=== PATIENT | male | born 1960 | race Caucasian/White ===

== ENCOUNTER → 2018-06-04 11:50 | Outpatient (CLI) | payer OTHER, SELFPAY ==
[2018-06-04 14:09] LABS: Cholesterol 145 mg/dL (200); High Density Lipoprotein 37 mg/dL; Triglycerides 165 mg/dL; Very Low Density Lipoprotein 33 mg/dL (5-40)
== END ==
PROVIDERS: Family Provider Family Medicine; PCP Family Medicine; Visit Provider Family Medicine
DX: E11.9 Type 2 diabetes mellitus without complications (principal); E78.00 Pure hypercholesterolemia, unspecified
CPT/HCPCS: 36415; 80061; 83036

== ENCOUNTER → 2019-07-17 10:48 | Outpatient (CLI) | payer OTHER, SELFPAY ==
[2019-07-17 10:06] VITALS: BMI 29.1
[2019-07-17 13:02] LABS: ALB/GLOB Ratio 1.1 RATIO (0.9-2.4); AST(SGOT) 30 U/L (15-37); Alanine Aminotransfer ALT/SGPT 46 U/L (16-61); Alkaline Phosphatase 56 U/L (45-117); Anion Gap 7 (5-15); BUN 18 mg/dL (7-18); BUN/Creat Ratio 14.4 RATIO (10-20); Calcium,Total 9.3 mg/dL (8.5-10.1); Chloride 104 mmol/L (98-107); Cholesterol 151 mg/dL (200); Creatinine, Serum 1.25 mg/dL (0.70-1.30); EST Glomerular Filtration Rate 63 mL/min (>60); Est Glom Filt Rate - Afr Amer 76 mL/min (>60); Globulin 3.7 g/dL (2.2-4.2); Glucose 156 mg/dL (74-106); High Density Lipoprotein 33 mg/dL; Potassium 4.6 mmol/L (3.5-5.1); Protein, Total 7.7 g/dL (6.4-8.2); Sodium Level 138 mmol/L (136-145); Triglycerides 154 mg/dL; Very Low Density Lipoprotein 31 mg/dL (5-40)
[2019-07-17 13:16] LABS: Microalbumin,Random Urine 39.9 mg/L (NO RANGE EST.); Microalbumin:Creatinine Ratio 32.4 mg/g CRE (<30 mg/g CRE)
== END ==
PROVIDERS: Family Provider Family Medicine; PCP Family Medicine; Visit Provider Family Medicine
DX: E11.9 Type 2 diabetes mellitus without complications (principal); E78.00 Pure hypercholesterolemia, unspecified
CPT/HCPCS: 36415; 80053; 80061; 82043; 82570

== ENCOUNTER → 2020-09-02 16:18 | Outpatient (CLI) | payer OTHER, SELFPAY ==
[2020-09-02 15:42] VITALS: BMI 29.2
[2020-09-02 17:37] LABS: ALB/GLOB Ratio 1.1 RATIO (0.9-2.4); AST(SGOT) 21 U/L (15-37); Alanine Aminotransfer ALT/SGPT 53 U/L (16-61); Alkaline Phosphatase 52 U/L (45-117); Anion Gap 11 (5-15); BUN 28 mg/dL (7-18); BUN/Creat Ratio 20.9 RATIO (10-20); Calcium,Total 9.7 mg/dL (8.5-10.1); Chloride 105 mmol/L (98-107); Cholesterol 146 mg/dL (200); Creatinine, Serum 1.34 mg/dL (0.70-1.30); EST Glomerular Filtration Rate 58 mL/min (>60); Est Glom Filt Rate - Afr Amer 70 mL/min (>60); Globulin 3.7 g/dL (2.2-4.2); Glucose 130 mg/dL (74-106); High Density Lipoprotein 39 mg/dL; Potassium 3.8 mmol/L (3.5-5.1); Protein, Total 7.7 g/dL (6.4-8.2); Sodium Level 138 mmol/L (136-145); Triglycerides 340 mg/dL; Very Low Density Lipoprotein 68 mg/dL (5-40)
[2020-09-02 18:09] LABS: Microalbumin,Random Urine 40.5 mg/L (NO RANGE EST.); Microalbumin:Creatinine Ratio 35.5 mg/g CRE (<30 mg/g CRE)
== END ==
PROVIDERS: PCP Family Medicine; Referring Provider Family Medicine; Visit Provider Family Medicine
DX: E11.9 Type 2 diabetes mellitus without complications (principal)
CPT/HCPCS: 36415; 80053; 80061; 82043; 82570

== ENCOUNTER 2021-08-19 08:01 | Emergency (ER) | payer OTHER, SELFPAY ==
[2021-08-19] VITALS (7 sets, daily range): BP systolic 114–158; BP diastolic 73–98; PULSE 61–141; RESP 12–65; TEMP 36.1; O2SAT 14–100; BMI 29.2
--- NOTE | 2021-08-19 08:11 | EDS_ITS ---
HPI History of Present Illness Chief Complaint: Upper Extremity Injury Informant: patient Occured/Mechanism Mechanism/Context: Yes injury, Yes blunt trauma and Yes same level fall Onset/Context/Timing Onset: Hours Context: Sudden Onset Timing: Continuous Quality of Pain: Aching Location: Right shoulder Current Severity: Mild Maximum Severity: Severe Worsened by: Any type of movement Relieved by: Nothing Associated Symptoms Associated Symptoms: Positive for Loss of Funtion; Negative for Parasthesia and Weakness Narrative Narrative: Patient is a 61-year-old [id number]-hlrawfct male who was hunting. Phillip franks tripped on a fence in the middle of the field. He states he landed on his right shoulder. He has fractured his right clavicle in the past. He denies head trauma. He is not on an anticoagulant. He denies neck pain. He denies paresthesia, anesthesia or motor weakness. He states he has significant pain with any type of movement of the right upper extremity. He states he heard 3 clicks and feels the muscle is spasming. He denies chest pain. No shortness of breath. Tetanus Immunization: 5-10 years Prior similar symptoms: No Recent Illness/Hospitalization: No [facility] Medical History (Updated 08/19/21 @ 14:[address] Kwadwo Barcenas MD) Diabetes High cholesterol Home Medications blood sugar diagnostic #50 ea 12/02/20 [Rx Last Taken Unknown] canagliflozin 300 mg tablet See Rx Instructions .ROUTE .COMPLEX #90 tablet 12/02/20 [Rx Last Taken Unknown] lisinopril 10 mg tablet 10 mg PO QDAY #90 tab 12/02/20 [Rx Last Taken Unknown] metformin 1,000 mg tablet See Rx Instructions .ROUTE .COMPLEX #180 tablet 12/02/20 [Rx Last Taken Unknown] rosuvastatin 5 mg tablet 5 mg PO QDAY #90 tab 12/02/20 [Rx Last Taken Unknown] albuterol sulfate 90 mcg/actuation aerosol inhaler 2 puff INHALATION Q6H PRN #18 g 03/30/21 [Rx Last Taken Unknown] citalopram 20 mg tablet 20 mg PO DAILY #90 tab 03/30/21 [Rx Last Taken Unknown] Allergy/AdvReac Type Severity Reaction Status Date / Time red dye Allergy Intermediate Headache Verified 08/19/21 08:04 Family History Mother Diverticulitis High blood cholesterol Skin cancer Thyroid disorder Diabetes Father Myocardial infarction Brother High blood cholesterol Diabetes Skin cancer Psychiatric care Surgical History History of orthopedic surgery History of vasectomy Social History (Updated 08/19/21 @ 08:[address] Kwadwo Barcenas MD) household members: none Smoking Status: Never smoker alcohol intake: never substance use type: does not use what type of physical activity do you participate in: none ROS ROS ED Constitutional Constitutional ED: Denies chills, fever(s) or subjective Eyes Eyes: Denies blurry vision or change in vision ENT ENT ED: Denies ear pain or sore throat Cardiovascular Cardiovascular: Denies chest pain or palpitations Respiratory/Chest Respiratory/Chest: Denies dyspnea or dyspnea on exertion Gastrointestinal Gastrointestinal: Denies abdominal pain, nausea or vomiting Musculoskeletal Musculoskeletal: Denies back pain, myalgias or neck pain Integumentary Denies Abrasions or rash Neurologic Neurologic: Denies paresthesias or weakness Hematologic/Lymphatic Hematologic/Lymphatic: Denies easy bleeding or easy bruising EXAM Physical Exam Const Vital Signs: 08/19/21 08:02 Temperature 97.0 F L Temperature Source Temporal Pulse Rate 62 Respiratory Rate 16 Blood Pressure 141/86 H Blood Pressure Mean 104 Pulse Ox 100 Oxygen Delivery Method Room Air Positive well nourished and well developed General Appearance ED: well developed; Negative for cyanotic, diaphoretic or NAD HEENT HEENT Narrative: Ears normal. Nares patent. No dental trauma. No clinical findings of basilar skull fracture. normocephalic and atraumatic Eyes PERRL and EOMs intact bilaterally Eyes Narrative: There is no subconjunctival hemorrhage. Neck No full ROM and No supple Resp No normal respiratory effort and No clear to auscultation bilaterally Cardio regular rate, regular rhythm, S1 normal heart sound, S2 normal heart sound and no murmurs GI non-tender and non-distended Auscultation: normoactive bowel sounds Palpation: soft Back/Spine no CVA tenderness Extremity Extremity Narrative: Of the clavicle or AC joint. There is no pain the patient with lateral medial epicondyle, olecranon process or radial head. There is no pain the patient with distal radius or ulna. Is no pain the patient with carpal bones, metacarpal bones or phalanges. Axillary, median, radial and ulnar fu nction intact. Radial pulses palpable.Patient has pain ovation of the proximal humerus. Right Upper Extremity: shoulder joint; Negative for clavicle, bony scapula, elbow joint, lower arm, wrist or hand and digits Neuro oriented x3, CN's II-XII intact bilaterally, no focal motor deficits and no sensory deficits noted Sensorium / Orientation: alert Psych mental status grossly normal Skin Lesions: no lesions Rashes: no rashes MDM MDM MDM Narrative Medical decision making narrative: Suspect patient has a proximal humeral fracture. X-ray was obtained to evaluate for fracture versus dislocation versus contusion. He was medicated with [place]. Patient's case was discussed with Dr. Bobby Martinez. He recommended not going to range of motion and specifically internal rotation. He recommended a sling with pillow so that patient's arm would be externally rotated and AB ducted. This was obtained. Patient required sedation again. Onset time 1345. End time 1349. There was an obvious clunk indicating that the dislocation was reduced. He was placed in the sling with his arm externally rotated to 90 degrees and AB ducted. Post reduction film was ordered. Post reduction film is successful. Will discharge to home to follow-up with Dr. Bobby Martinez. Radiography Diagnostic Testin views of the right shoulder were obtained and findings are consistent with a posterior dislocation of the right humerus. Will consent patient for sedation and reduction. Post reduction films revealed that he still has a posterior dislocation. Dr. Bobby Martinez is on-call for orthopedics was paged to discuss case and recommendations. Procedures Other Procedures Procedure(s): 1. Deep sedation 2. Reduction posterior right shoulder dislocation Patient was informed of his x-ray findings and need for sedation and reduction. He had no prior complication with anesthesia. He denies allergy to soy products or egg products. He has not eaten since last night. He was given opportunity ask questions. None were asked. Discharge Plan Triage Chief Complaint: Upper Extremity Injury Other Complaint: Fall ED Provider: Kwadwo Barcenas Dx/Rx/DC Orders Clinical Impression: Closed posterior dislocation of right shoulder Instructions: ED Dislocation: Shoulder (Reduced) Prescriptions: No Action lisinopril 10 mg tablet 10 mg PO QDAY Qty: 90 RF: 3 metformin 1,000 mg tablet See Rx Instructions .ROUTE .COMPLEX Qty: 180 RF: 1 rosuvastatin [Crestor] 5 mg tablet 5 mg PO QDAY Qty: 90 RF: 2 Invokana 300 mg tablet See Rx Instructions .ROUTE .COMPLEX Qty: 90 RF: 1 (DME) OneTouch Ultra Blue Test Strip Strip See Rx Instructions .ROUTE .MEDSUPPLY Qty: 50 RF: 3 albuterol sulfate [Ventolin HFA] 90 mcg/actuation HFA aerosol inhaler 2 puff INHALATION Q6H PRN (Reason: shortness of breath or wheezing) Qty: 18 RF: 1 citalopram [Celexa] 20 mg tablet 20 mg PO DAILY Qty: 90 RF: 3 Primary Care Provider: Cesar Miranda Referrals: Cesar Miranda, [Primary Care Provider] - Bobby Martinez MD [STAFF PHYSICIAN] - 5-7 Days Activity Restrictions/Additional Instructions: Keep arm in sling. When you change her close keep your arm rotated outward. If you rotate inward you may redislocate your shoulder Disposition Disposition: Home, Self Care
[2021-08-19] MEDS: HYDROcodone Bitartrate/Apap 5/325 Tablet PO ×2 (08:17→12:30)
--- NOTE | 2021-08-19 08:34 | RAD_ITS ---
STUDY: X-RAY - RIGHT SHOULDER REASON FOR EXAM: Right shoulder pain, right shoulder injury today. TECHNIQUE: 2 view(s) of the shoulder. COMPARISON: None. FINDINGS: There is posterior dislocation of the glenohumeral articulation. There is acromioclavicular arthrosis. Normal acromion. Normal humeral head and visualized proximal humerus. The soft tissue structures are unremarkable. Normal visualized pulmonary apex. RAD/Shoulder min 2 Views IMPRESSION: Posterior shoulder dislocation. Electronically Signed: Josef Degroot MD at 9:06 EDT Tel , Service support ,
--- NOTE | 2021-08-19 10:25 | RAD_ITS ---
STUDY: X-RAY - RIGHT SHOULDER REASON FOR EXAM: Post reduction of right shoulder dislocation. TECHNIQUE: 2 view(s) of the shoulder. COMPARISON: Radiographs obtained earlier today. FINDINGS: There is persistent posterior dislocation of the glenohumeral articulation. There is acromioclavicular arthrosis. Normal acromion. Normal humeral head and visualized proximal humerus. The soft tissue structures are unremarkable. Normal visualized pulmonary apex. RAD/Shoulder min 2 Views IMPRESSION: Persistent posterior dislocation of the glenohumeral articulation. Electronically Signed: Josef Degroot MD at 11:09 EDT Tel , Service support ,
[2021-08-19] MEDS: Propofol 200 MG/20 ML Vial IV BOLUS (10:34)
--- NOTE | 2021-08-19 14:19 | RAD_ITS ---
STUDY: X-RAY - RIGHT SHOULDER REASON FOR EXAM: Post reduction right shoulder dislocation. TECHNIQUE: 2 view(s) of the shoulder. COMPARISON: Earlier radiographs today. FINDINGS: There is reduction of the posterior shoulder dislocation. There is acromioclavicular arthrosis. Normal acromion. There is no demonstrated humeral head fracture on the views submitted. The soft tissue structures are unremarkable. Normal visualized pulmonary apex. RAD/Shoulder min 2 Views IMPRESSION: Reduction of right shoulder dislocation. Electronically Signed: Josef Degroot MD at 14:51 EDT Tel , Service support ,
== END 2021-08-19 14:52 | disposition home or self-care (01) ==
PROVIDERS: Emergency Provider Emergency Medicine; PCP Family Medicine
DX: S43.024A Posterior dislocation of right humerus, initial encounter (principal); W01.10XA Fall on same level from slipping, tripping and stumbling with subsequent striking against unspecified object, initial encounter; Y93.89 Activity, other specified; Y92.9 Unspecified place or not applicable; Y99.9 Unspecified external cause status; E11.9 Type 2 diabetes mellitus without complications; E78.00 Pure hypercholesterolemia, unspecified; Z79.84 Long term (current) use of oral hypoglycemic drugs; Z79.899 Other long term (current) drug therapy
CPT/HCPCS: 23650; 73030; 99152; 99153; 99285; J7030; A4216

== ENCOUNTER → 2021-10-27 15:33 | Outpatient (CLI) | payer OTHER, SELFPAY ==
[2021-10-27 17:55] LABS: Absolute Lymphocyte Count 2.62 X10^3/uL (0.83-4.51); Absolute Neutrophil Count 5.4 X10^3/uL (2.0-7.7); Basophil# 0.04 X10^3/uL; Basophil% 0.4 % (0-1); Eosinophil# 0.15 X10^3/uL; Eosinophils% 1.7 % (0-5); Hemoglobin 16.6 g/dL (13.0-16.5); Lymphocyte # 2.62 X10^3/ul (0.83-4.51); Lymphocyte % 29.3 % (19-41); Mean Corp Hgb Conc 33.9 g/dL (32-36); Mean Corpuscular Hgb 32.3 pg (27.0-32.0); Mean Corpuscular Volume 95.3 fL (80-94); Monocyte# 0.65 X10^3/uL; Monocyte% 7.3 % (0-10); NRBC Flagged by Analyzer 0 % (0-5); Neutrophil # 5.42 X10^3/uL (2.7-7.7); Neutrophil % 60.5 % (47-70); Platelet Count 166 K/mm3 (150-450); RBC Distribution Width CV 12.8 % (11.6-14.6); RBC Distribution Width SD 44.8 fl (35.1-43.9); Red Blood Count 5.14 M/mm3 (4.6-6.2)
[2021-10-27 18:12] LABS: Anion Gap 7 (5-15); BUN 38 mg/dL (7-18); BUN/Creat Ratio 30.6 RATIO (10-20); Calcium,Total 9.7 mg/dL (8.5-10.1); Chloride 107 mmol/L (98-107); Creatinine, Serum 1.24 mg/dL (0.70-1.30); EST Glomerular Filtration Rate 63 mL/min (>60); Est Glom Filt Rate - Afr Amer 76 mL/min (>60); Glucose 185 mg/dL (74-106); Potassium 4.4 mmol/L (3.5-5.1); Sodium Level 136 mmol/L (136-145)
[2021-10-27 18:23] LABS: Hemoglobin A1c 10.3 % (3.8-5.6)
== END ==
PROVIDERS: PCP Family Medicine; Visit Provider Family Medicine
DX: M67.919 Unspecified disorder of synovium and tendon, unspecified shoulder (principal); E11.9 Type 2 diabetes mellitus without complications
CPT/HCPCS: 36415; 80048; 83036; 85025

== ENCOUNTER → 2021-10-28 09:09 | Outpatient (CLI) | payer OTHER, SELFPAY ==
--- NOTE | 2021-10-28 09:11 | EKG12_ITS ---
Test Reason : PRE OP Blood Pressure : / mmHG Vent. Rate : 072 BPM Atrial Rate : 072 BPM P-R Int : 186 ms QRS Dur : 096 ms QT Int : 370 ms P-R-T Axes : 070 050 055 degrees QTc Int : 405 ms Normal sinus rhythm Normal ECG Confirmed by MARCIN GARCIA, SHIN ([id number]), marketing editor CASS WRIGHT ([id number]) on 10/29/2021 12:43:51 PM Referred By: Cesar Miranda Confirmed By:TAMIKA BURCH MD
== END ==
PROVIDERS: PCP Family Medicine; Referring Provider Family Medicine; Visit Provider Family Medicine
DX: Z01.818 Encounter for other preprocedural examination (principal)
CPT/HCPCS: 93005

== ENCOUNTER 2022-01-31 15:06 | Emergency (ER) | payer OTHER, SELFPAY ==
[2022-01-31 15:07] VITALS: BP 139/79; PULSE 95; RESP 16; TEMP 37.3; O2SAT 98; BMI 31.8
--- NOTE | 2022-01-31 16:14 | EX.ED.DYSGE1 ---
HPI History of Present Illness Chief Complaint: Cellulitis Informant: patient and spouse/S.O. Onset/Context/Timing Onset: Days Context: Gradual Onset Timing: Continuous Current Severity: Mild Maximum Severity: Mild Narrative Narrative: 51-year-old diabetic male who on Monday developed right-sided facial redness. Subjective fever not documented. No other symptoms. States is never had this before. He went to urgent care they sent in the emergency department for further evaluation. He denies any pain. He denies any eye pain or visual change. Prior similar symptoms: No Recent Illness/Hospitalization: No PFSH PFSH Medical History Diabetes High cholesterol Home Medications blood sugar diagnostic #50 ea 12/02/20 [Rx Last Taken Unknown] lisinopril 10 mg tablet 10 mg PO QDAY #90 tab 12/02/20 [Rx Last Taken Unknown] rosuvastatin 5 mg tablet 5 mg PO QDAY #90 tab 12/02/20 [Rx Last Taken Unknown] albuterol sulfate 90 mcg/actuation aerosol inhaler 2 puff INHALATION Q6H PRN #18 g 03/30/21 [Rx Last Taken Unknown] metformin 1,000 mg tablet See Rx Instructions .ROUTE .COMPLEX #180 tablet 08/23/21 [Rx Last Taken Unknown] dapagliflozin 10 mg tablet 10 mg PO QAM #90 tab 10/27/21 [Rx Last Taken Unknown] citalopram 20 mg tablet 20 mg PO DAILY #90 tab 11/01/21 [Rx Last Taken Unknown] cephalexin 500 mg PO Q6 #40 cap 01/31/22 [Rx Last Taken Unknown] sulfamethoxazole-trimethoprim [Bactrim DS] 1 tab PO BID 10 Days #20 tab 01/31/22 [Rx Last Taken Unknown] Allergy/AdvReac Type Severity Reaction Status Date / Time red dye Allergy Intermediate Headache Verified 01/31/22 15:09 Family History Mother Diverticulitis High blood cholesterol Skin cancer Thyroid disorder Diabetes Father Myocardial infarction Brother High blood cholesterol Diabetes Skin cancer Psychiatric care Surgical History History of orthopedic surgery History of vasectomy Social History household members: none Smoking Status: Never smoker alcohol intake: never substance use type: does not use what type of physical activity do you participate in: none ROS ROS ED ROS Narrative Subjective fever. Review of Systems ROS Unobtainable: Denies due to encephalopathy Constitutional Constitutional ED: Reports fever(s) and subjective Eyes Eyes: Denies change in vision ENT ENT ED: Denies ear pain Cardiovascular Cardiovascular: Denies chest pain Respiratory/Chest Respiratory/Chest: Denies dyspnea Gastrointestinal Gastrointestinal: Denies abdominal pain Genitourinary Genitourinary ED: Denies dysuria Musculoskeletal Musculoskeletal: Denies myalgias Integumentary Reports rash Neurologic Neurologic: Denies headache(s) Psychiatric Psychiatric: Denies depression Endocrine Endocrinology: Denies polyuria Allergic/Immunologic Allergic/Immunologic ED: Denies urticaria EXAM Physical Exam Narrative Exam Narrative: 61-year-old male no acute distress. Vital signs stable afebrile does not look septic or toxic. H EENT exam is facial cellulitis medial to his right ear to his cheek and involving the lower eyelid of his right eye. Pupils round reactive light. Extra motions are intact. He can do normal range of motion with both eyes without any eye pain. There is no proptosis. There is no discharge. There is no abscess. There is no significant lymphadenopathy. Posterior pharynx normal. Neck nontender no lymphadenopathy. Lungs are clear. Heart regular rhythm no murmur. Abdomen soft nontender. Moving all 4 extremities. Neurologically awake and alert. Const Vital Signs: 01/31/22 15:07 Temperature 99.2 F H Temperature Source Temporal Pulse Rate 95 Respiratory Rate 16 Blood Pressure 139/79 H Blood Pressure Mean 99 Pulse Ox 98 Oxygen Delivery Method Room Air Positive well nourished and well developed; Negative for cachectic, contractures or unkempt Constitutional Narrative: Right-sided facial cellulitis. General Appearance ED: well developed and NAD; Negative for unkempt, cachectic, contractures, cyanotic, diaphoretic or pallor Nutritional Appearance: Negative for cachectic HEENT Reports moist mucous membranes Negative for trauma or tenderness Eyes PERRL and EOMs intact bilaterally Neck no lymphadenopathy, supple and no JVD General: Negative for tenderness Chest Wall inspection of chest normal and palpation of chest normal Resp normal respiratory effort and clear to auscultation bilaterally Effort and Inspection: Negative for pain with movement Auscultation: Negative for rales, rhonchi or wheezes Cardio regular rate, regular rhythm, S1 normal heart sound, S2 normal heart sound and no murmurs GI normal to inspection, nondistended, normoactive bowel sounds, non-tender, non-distended and no masses Auscultation: normoactive bowel sounds Palpation: soft; Negative for tender, guarding or rebound tenderness present Back/Spine no CVA tenderness Extremity normal to inspection Extremity Narrative: Right arm has decreased range of motion from a prior rotator cuff repair that he is going through physical therapy for. General Extremety ED: Negative for edema or tenderness General Extremity: Negative for edema Neuro oriented x3 Sensorium / Orientation: alert and orientation impaired; Negative for lethargic or stuporous Motor Exam: strength 5/5 throughout Psych mental status grossly normal Appearance: Negative for unkempt Attitude: No agitated Mood & Affect: Negative for depressed or tearful Skin No no rashes or lesions noted, no wounds and skin turgor normal Skin Narrative: Right facial cellulitis. No orbital cellulitis. General Skin Exam: Negative for jaundice or pallor Rashes: rashes noted MDM MDM MDM Narrative Medical decision making narrative: Clinically patient looks good. He does not look septic or toxic. There is no orbital cellulitis. He will be treated with Keflex and Bactrim. We will check his blood sugar prior to discharge. At this time he does not need admitted for IV antibiotics. He was warned that if this gets worse., Or he begins feeling worse or he has eye pain he needs to return. Lab Data Lab results narrative: Blood sugar is 264. Discharge Plan Triage Chief Complaint: Cellulitis ED Provider: Dk Chaney Dx/Rx/DC Orders Clinical Impression: Cellulitis of face, History of diabetes mellitus Instructions: ED Cellulitis, Facial Prescriptions: New cephalexin 500 mg capsule 500 mg PO Q6 Qty: 40 RF: 0 sulfamethoxazole-trimethoprim [Bactrim DS] 800-160 mg tablet 1 tab PO BID 10 Days Qty: 20 RF: 0 No Action lisinopril 10 mg tablet 10 mg PO QDAY Qty: 90 RF: 3 rosuvastatin [Crestor] 5 mg tablet 5 mg PO QDAY Qty: 90 RF: 2 (DME) OneTouch Ultra Blue Test Strip Strip See Rx Instructions .ROUTE .MEDSUPPLY Qty: 50 RF: 3 albuterol sulfate [Ventolin HFA] 90 mcg/actuation HFA aerosol inhaler 2 puff INHALATION Q6H PRN (Reason: shortness of breath or wheezing) Qty: 18 RF: 1 Farxiga 10 mg tablet 10 mg PO QAM Qty: 90 RF: 2 metformin 1,000 mg tablet See Rx Instructions .ROUTE .COMPLEX Qty: 180 RF: 1 citalopram [Celexa] 20 mg tablet 20 mg PO DAILY Qty: 90 RF: 3 Primary Care Provider: Cesar Miranda Referrals: Cesar Miranda, DO [Primary Care Provider] - Keep Devaugh[place] appointment Activity Restrictions/Additional Instructions: Take both antibiotics as prescribed. The Keflex will be 1 pill 4 times a day. Take 2 more today. The Bactrim is 1 pill twice a day take another one today before you go to bed. Follow-up with your doctor with a scheduled appointment. Tylenol for any fever. Return if this is getting worse instead of better. If you are feeling worse or you develop eye pain or worsening swelling around your eye you need to be reevaluated for possible admission for IV antibiotics. Disposition Disposition: Home, Self Care
[2022-01-31] MEDS: Cephalexin 250 MG Capsule 500 MG PO (16:31)
[2022-01-31] MEDS: Smz/Tmp Ds Tablet 1 TABLET PO (16:31)
[2022-01-31 16:41] LABS: Bedside Glucose 264 mg/dL (74-106)
== END 2022-01-31 16:40 | disposition home or self-care (01) ==
PROVIDERS: Emergency Provider Emergency Medicine; PCP Family Medicine; Visit Provider Emergency Medicine
DX: L03.211 Cellulitis of face (principal); E11.9 Type 2 diabetes mellitus without complications; E78.00 Pure hypercholesterolemia, unspecified; Z79.84 Long term (current) use of oral hypoglycemic drugs; Z79.899 Other long term (current) drug therapy
CPT/HCPCS: 82962; 99282

== ENCOUNTER 2022-03-29 13:00 | Outpatient (RCR) | payer OTHER, SELFPAY ==
--- NOTE | 2021-12-28 12:15 | HP.PTEVAL ---
Patient's Visit Information NATALIE ABURTO is a 61 year old M referred to Physical Therapy by KOFI CARNEY with a diagnosis of R RTC repair 11/03/22. Date of Evaluation: 12/21/21 Physical Therapist: Hieu Scott DPT - Visit Plan Frequency: 2x /Week Duration: 6 Weeks Plan: Start with PROM focus on progressing to end range. Add in AAROM as tolerated. Progress towards end range of motion as able. - Subjective Pt. is here today for his initial evaluation with diagnosis of R RTC repair on 11/03/22. Pt. reports doing well. He did therapy pre surgery, but did have an MRI showing a tear. He arrives today without a sling without reports of issues. R hand dominant. He reports trying not to use his arm, but then showed me what he was doing actively. Pt. is sleeping well without much issue. He. is active alex and likes working outside. He denies N/T in either UE. He has been consistent with exercises given to him by physician. He was doing his functional IR stretch improperly. He is hopeful to get back to all activities including shooting and outdoor activities without limitations. - Pain R shoulder Pain Intensity (Out of 10): 1 Pain Intensity Range: 0, 4 - Objective POSTURE: Pt. has slight FH posture. Pt. has slight increase in T/S flexion. PALPATION: Pt. has normal healing incisions, No signs of infection. He had some tenderness along. NEURO: Pt. has normal sensation and DTR of BUEs. ROM: PROM: R shoulder: flexion 155deg, abd 150deg, ER at side 40deg, ER at 90deg 55deg. L shoulder full ROM. Pt. report pain and stiffness as limiting factor with PROM. MMT: LUE: 5/5 throughout. RUE: DNT due to recent surgery. - Balance/Special Test Scores Quick DASH Score: 34.0900 - Goals Goal 1:: LTG: Pt. to be I with HEP. Goal Time Frame: 4-6 Weeks Goal 2:: STG: Pt. to sleep throughout the night without increase in R shoulder pain. Goal Time Frame: 2 Weeks Goal 3:: STG: Pt. to have at least 90% of R shoulder ROM compared to L shoulder. Goal Time Frame: 2 Weeks Goal 4:: LTG: Pt. to have full R shoulder AROM allowing for increased ability to complete ADLs. Goal Time Frame: 4-6 Weeks Goal 5:: LTG: Pt. to have increased R shoulder strength to at least 5-/5 throughout allowing for increased ability to complete all recreational activities. Goal Time Frame: 6-8 Weeks - Rehabilitation Potential Physical Therapy Diagnosis: Pt. presents with signs and symptoms consistent with R RTC repair. Pt. has subsequent hypomobility, weakness, difficulty with ADLs and increased pain. Pt. would benefit from PT to work on the above limitations progressing back to all recreational activities. Rehabilitation Potential: Excellent - Anticipated Interventions Patient/Client Instruction: Educate patient on: Condition, Plan of Care, Risk Factors, Benefits of Fitness Program For the Purpose of:: To improve health and function, To foster healthy habits, To improve decision making, To facilitate caregiver knowledge, To improve self management, To prevent re-injury, To improve ability to perform tasks related to life management Therapeutic Exercise to Include: Strength training, Power training, Balance training, Body mechanics, Postural training, Flexibilty training, Passive ROM, Active ROM, Dynamic Lumbar Stabilization For the Purpose of:: To decrease pain, To decrease swelling/inflammation, To increase ROM, To improve nutrient delivery to tissue, To increase oxygenation perfusion, To improve health of tissue, To decrease soft tissue restriction, To increase flexibility/ROM Manual Therapy Techniques to Include: Mobilization, Passive ROM, Soft tissue mobilization For the Purpose of:: To decrease pain, To decrease swelling/inflammation, To increase ROM Thank you for the opportunity to evaluate your patient. For Medicare and Medicare HMO plans, please review the plan of care and approve it. It will need to be FAXED BACK to us at [phone] for Medicare purposes. For Medicare only, by signing this I certify the plan of care. Please let me know if there are questions or concerns regarding this plan of care. Physician Signature: Date:
--- NOTE | 2022-02-24 08:04 | HP.PTREVAL_ITS ---
KOFI CARNEY, It has been my pleasure to treat NATALIE ABURTO over the last 6 visits for R RTC repair 11/03/22. Please see the progress note below for an update on the physical therapy plan of care! Subjective: Pt. reports that he was sick with some sore of reaction on his face. He had increased swelling and was hospitalized for a bit. Pt. reports being much better now. No new issues with his shoulder. He did see his physician who released him to start strengthening at this point in time. Objective/Function: ROM: PROM: flexion 170deg, abd `170deg, ER at side 40deg, ER at 90deg 78deg, IR at 90deg 45deg. AROM: flexion 150deg, abd 140deg, functional ER C3, functional IR L4. MMT: R shoulder: flexion 8#, abd 5#, ER 2#, IR 8#, ext 15#. Pt. has marked weakness throughout his R arm as expected. Greatest being with ER motion. Pt. to begin working further on this. Plan Plan: Start phase III, continue to work on full AROM as tolerated. Balance/Gait/Functional tests - Balance/Special Test Scores Quick DASH Score: 34.0900 Goals Goal 1:: LTG: Pt. to be I with HEP. Goal Time Frame: 4-6 Weeks Goal Progress: Progressing Goal 2:: STG: Pt. to sleep throughout the night without increase in R shoulder pain. Goal Time Frame: 2 Weeks Goal Progress: Goal Met Goal 3:: STG: Pt. to have at least 90% of R shoulder ROM compared to L shoulder. Goal Time Frame: 2 Weeks Goal Progress: Progressing Goal 4:: LTG: Pt. to have full R shoulder AROM allowing for increased ability to complete ADLs. Goal Time Frame: 4-6 Weeks Goal Progress: Progressing Goal 5:: LTG: Pt. to have increased R shoulder strength to at least 5-/5 throughout allowing for increased ability to complete all recreational a ctivities. Goal Time Frame: 6-8 Weeks Goal Progress: Progressing Anticipated Interventions Patient/Client Instruction: Educate patient on: Condition, Plan of Care, Risk Factors, Benefits of Fitness Program For the Purpose of:: To improve health and function, To foster healthy habits, To improve decision making, To facilitate caregiver knowledge, To improve self management, To prevent re-injury, To improve ability to perform tasks related to life management Therapeutic Exercise to Include: Strength training, Power training, Balance training, Body mechanics, Postural training, Flexibilty training, Passive ROM, Active ROM, Dynamic Lumbar Stabilization For the Purpose of:: To decrease pain, To decrease swelling/inflammation, To increase ROM, To improve nutrient delivery to tissue, To increase oxygenation perfusion, To improve health of tissue, To decrease soft tissue restriction, To increase flexibility/ROM Manual Therapy Techniques to Include: Mobilization, Passive ROM, Soft tissue mobilization For the Purpose of:: To decrease pain, To decrease swelling/inflammation, To increase ROM Please do not hesitate to contact me at [phone] by phone or if you have questions or concerns regarding this new plan of care! Sincerely, PAMELA RaderT
== END 2022-03-29 19:00 | disposition home or self-care (01) ==
LOC: PT 13:00
PROVIDERS: PCP Family Medicine
DX: M75.121 Complete rotator cuff tear or rupture of right shoulder, not specified as traumatic (principal); S43.421D Sprain of right rotator cuff capsule, subsequent encounter; S46.111D Strain of muscle, fascia and tendon of long head of biceps, right arm, subsequent encounter; X58.XXXD Exposure to other specified factors, subsequent encounter; M19.011 Primary osteoarthritis, right shoulder; E11.65 Type 2 diabetes mellitus with hyperglycemia
CPT/HCPCS: 97110; 97161; 97164

== ENCOUNTER → 2024-07-03 | Outpatient (CLI) | payer OTHER, SELFPAY ==
[2024-07-03 17:20] LABS: Microalbumin,Random Urine 39.4 mg/L (NO RANGE EST.); Microalbumin:Creatinine Ratio 61.7 mg/g CRE (<30 mg/g CRE)
[2024-07-03 18:21] LABS: ALB/GLOB Ratio 1.1 RATIO (0.9-2.4); AST(SGOT) 43 U/L (15-37); Alanine Aminotransfer ALT/SGPT 55 U/L (16-61); Alkaline Phosphatase 57 U/L (45-117); Anion Gap 7 (5-15); BUN 24 mg/dL (7-18); BUN/Creat Ratio 21.8 RATIO (10-20); Calcium,Total 9.3 mg/dL (8.5-10.1); Chloride 103 mmol/L (98-107); Cholesterol 223 mg/dL (200); EST Glomerular Filtration Rate 72 mL/min (>60); Est Glom Filt Rate - Afr Amer 87 mL/min (>60); Globulin 3.5 g/dL (2.2-4.2); Glucose 119 mg/dL (74-106); High Density Lipoprotein 37 mg/dL; Potassium 4.4 mmol/L (3.5-5.1); Protein, Total 7.5 g/dL (6.4-8.2); Sodium Level 137 mmol/L (136-145); Triglycerides 256 mg/dL; Very Low Density Lipoprotein 51 mg/dL (5-40)
== END | disposition home or self-care (01) ==
LOC: BIMLAB 16:13
PROVIDERS: PCP Family Medicine; Referring Provider Family Medicine; Visit Provider Family Medicine
DX: E11.9 Type 2 diabetes mellitus without complications (principal)
CPT/HCPCS: 36415; 80053; 80061; 82043; 82570